=== PATIENT | male | born 1955 | race Caucasian/White ===

== ENCOUNTER 2019-08-29 17:46 | Emergency (ER) | payer BC, OTHER ==
[2019-08-29] MEDS ORDERED: NORMAL SALINE 1000 ML 1,000 ML IV ONE (18:22)
[2019-08-29 19:04] LABS: ABSOLUTE MONOCYTES (AUTO) 0.8 10^3/uL (0.1-1.4); ABSOLUTE NEUT (AUTO) 16.5 10^3/uL (1.7-8.2); BASOPHILS % (AUTO) 0.1 % (0-2); HEMATOCRIT 43.6 % (37.9-51.0); HEMOGLOBIN 15.2 g/dL (13.5-17.0); LYMPHOCYTES % (AUTO) 5.2 % (13-45); MEAN CORPUSCULAR HEMOGLOBIN 30.5 pg (27.0-33.4); MEAN CORPUSCULAR HGB CONC 34.7 g/dL (32.0-36.0); MEAN CORPUSCULAR VOLUME 88 fl (80-97); MONOCYTES % (AUTO) 4.3 % (3-13); PLATELET COUNT 239 10^3/uL (150-450); RED BLOOD COUNT 4.97 10^6/uL (4.35-5.55); SEGMENTED NEUTROPHILS % (AUTO) 90.4 % (42-78); TOTAL CELLS COUNTED % (AUTO) 100 %; WHITE BLOOD COUNT 18.3 10^3/uL (4.0-10.5)
[2019-08-29 19:22] LABS: ALBUMIN 4.4 g/dL (3.5-5.0); ALKALINE PHOSPHATASE 86 U/L (38-126); ANION GAP 11 (5-19); ASPARTATE AMINO TRANSFERASE 21 U/L (17-59); BILIRUBIN,DIRECT 0.2 mg/dL (0.0-0.4); BILIRUBIN,TOTAL 1.3 mg/dL (0.2-1.3); BLOOD UREA NITROGEN 46 mg/dL (7-20); CALCIUM 10.1 mg/dL (8.4-10.2); CARBON DIOXIDE 27 mmol/L (22-30); CHLORIDE 99 mmol/L (98-107); GLUCOSE 257 mg/dL (75-110); POTASSIUM 4.1 mmol/L (3.6-5.0); TOTAL PROTEIN 7.9 g/dL (6.3-8.2)
[2019-08-29 19:29] LABS: A TYPE INFLUENZA AG NEGATIVE (NEGATIVE); B INFLUENZA AG NEGATIVE (NEGATIVE)
[2019-08-29 19:32] LABS: VENOUS BLOOD BASE EXCESS -0.3 mmol/L; VENOUS BLOOD HCO3 23.1 mmol/L (20-32); VENOUS BLOOD PCO2 34.6 mmHg (35-63); VENOUS BLOOD PH 7.44 (7.30-7.42)
--- NOTE | 2019-08-29 19:57 | ER Document Report ---
ED ENT - General Chief Complaint: Sore Throat Stated Complaint: COUGH Time Seen by Provider: 08/29/19 18:02 Primary Care Provider: EAGLE ROGERS FNP-C [Primary Care Provider] - Follow up as needed Mode of Arrival: Ambulatory Information source: Patient Notes: 63-year-old male presented to ED for complaint of shortness of breath, low-grade fever, sore throat. He has swelling to the right side of his throat and neck. He states he has become more more difficult to swallow. He states he had a virtual visit with his doctor on Monday and they started on penicillin 500 mg a day for strep. He states he did not get tested for strep. He states he is also been using Tylenol. He is a diabetic on Actos with his sugars running in the 200s. He also has a history of high blood pressure and a right knee surgery as well as an appendectomy. He is alert oriented respirations regular nonlabored speaking in full sentences. He states he does have difficulty swallowing but he is able to suck on ice as well as long as he spits it out. He is a former smoker does not drink or do any drugs. TRAVEL OUTSIDE OF THE [place] IN LAST 30 DAYS: No - HPI Patient complains to provider of: Throat problem Onset: Last week Onset/Duration: Gradual, Worse Quality of pain: Sharp Severity: Severe Pain Level: 5 Context: Recent Illness Location of pain: Throat Associated symptoms: Runny nose, Sore throat Similar symptoms previously: Yes Recently seen / treated by doctor: Yes - Virtual visit - Related Data Allergies/Adverse Reactions: morphine Allergy (Verified 08/29/19 18:21) Past Medical History - General Information source: Patient - Social History Smoking Status: Former Smoker Frequency of alcohol use: None Drug Abuse: None Lives with: Family Family History: Reviewed & Not Pertinent Patient has suicidal ideation: No Patient has homicidal ideation: No - Past Medical History Cardiac Medical History: Reports: Hx Hypertension Pulmonary Medical History: Reports: None EENT Medical History: Reports: None Neurological Medical History: Reports: None Endocrine Medical History: Reports: Hx Diabetes Mellitus Type 2 Renal/ Medical History: Reports: None Malignancy Medical History: Reports None GI Medical History: Reports: None Musculoskeletal Medical History: Reports Hx Musculoskeletal Deformity, Reports Hx Musculoskeletal Trauma Skin Medical History: Reports None Psychiatric Medical History: Reports: None Traumatic Medical History: Reports: None Infectious Medical History: Reports: None Past Surgical History: Reports: Hx Appendectomy, Hx Orthopedic Surgery - Right knee - Immunizations Immunizations up to date: Yes Review of Systems - Review of Systems Constitutional: Fever, Recent illness EENT: Throat pain, Difficulty swallowing Cardiovascular: No symptoms reported Respiratory: Cough, Short of breath Gastrointestinal: No symptoms reported Genitourinary: No symptoms reported Male Genitourinary: No symptoms reported Musculoskeletal: No symptoms reported Skin: No symptoms reported Hematologic/Lymphatic: No symptoms reported Neurological/Psychological: No symptoms reported -: Yes All other systems reviewed and negative Physical Exam - Vital signs Vitals: Temp Pulse Resp BP Pulse Ox 99.8 F 110 H 18 118/76 95 08/29/19 18:08 08/29/19 18:08 08/29/19 18:08 08/29/19 18:08 08/29/19 18:08 Interpretation: Normal - General General appearance: Appears well, Alert - HEENT Head: Normocephalic, Atraumatic Eyes: Normal Pupils: PERRL Ears: Normal External canal: Normal Tympanic membrane: Normal Sinus: Normal Nasal: Purulent discharge, Swelling Mouth/Lips: Normal Mucous membranes: Normal Pharynx: Erythema, Exudate, Post nasal drainage, Tonsillar hypertrophy Neck: Anterior cervical chain, Lymphadenopathy - Respiratory Respiratory status: No respiratory distress Chest status: Nontender Breath sounds: Normal Chest palpation: Normal - Cardiovascular Rhythm: Regular Heart sounds: Normal auscultation Murmur: No - Abdominal Inspection: Normal Distension: No distension Bowel sounds: Normal Tenderness: Nontender Organomegaly: No organomegaly - Back Back: Normal, Nontender - Extremities General upper extremity: Normal inspection, Nontender, Normal color, Normal ROM, Normal temperature General lower extremity: Normal inspection, Nontender, Normal color, Normal ROM, Normal temperature, Normal weight bearing. No: Becca's sign - Neurological Neuro grossly intact: Yes Cognition: Normal Orientation: AAOx4 Dubberly Coma Scale Eye Opening: Spontaneous Dubberly Coma Scale Verbal: Oriented Dwain Coma Scale Motor: Obeys Commands Dubberly Coma Scale Total: 15 Speech: Normal Motor strength normal: LUE, RUE, LLE, RLE Sensory: Normal - Psychological Associated symptoms: Normal affect, Normal mood - Skin Skin Temperature: Warm Skin Moisture: Dry Skin Color: Normal Course - Vital Signs Vital signs: Temp Pulse Resp BP Pulse Ox 99.0 F 110 H 15 117/82 98 08/29/19 23:39 08/29/19 18:08 08/29/19 23:39 08/29/19 23:39 08/29/19 23:39 - Laboratory Result Diagrams: 08/29/19 18:36 08/29/19 18:36 Laboratory results interpreted by me: 08/29/19 08/29/19 08/29/19 18:36 18:36 19:18 WBC 18.3 H Lymph % (Auto) 5.2 L Absolute Neuts (auto) 16.5 H Seg Neutrophils % 90.4 H VBG pH 7.44 H VBG pCO2 34.6 L Sodium 136.8 L BUN 46 H Glucose 257 H POC Glucose 08/29/19 21:32 WBC Lymph % (Auto) Absolute Neuts (auto) Seg Neutrophils % VBG pH VBG pCO2 Sodium BUN Glucose POC Glucose 231 H Discharge - Discharge Clinical Impression: Peritonsillar abscess, Compromised airway Condition: Good Disposition: [facility] Referrals: EAGLE ROGERS FNP-C [Primary Care Provider] - Follow up as needed
--- NOTE | 2019-08-29 20:37 | RADIOLOGY REPORT (SQ) ---
EXAM DESCRIPTION: [facility]: CT NECK WITH IV CONTRAST CLINICAL HISTORY: 63 years Male; SWELLING TO RIGHT THROAT; no known trauma. Right-sided sore throat with fever times at least several days. TECHNIQUE: CT soft tissue neck with contrast All CT scans at this facility use dose modulation, iterative reconstruction, and/or weight based dosing when appropriate to reduce radiation dose to as low as reasonably achievable. COMPARISON: None. FINDINGS: There is a large collection of air and fluid that begins at the right tonsil and extends into the right lateral parapharyngeal soft tissues. The extends along the right lateral margin of the thyroid cartilage and into the midline, down to the thyroid gland. At the level of the right area epiglottic fold, there is significant mass effect on the airway. At this level, the collection of air and fluid measures 3.3 cm LR by 1.7 cm AP. Airway is reduced to less than 5 mm. Edema extends into the epiglottis. Right retropharyngeal edema combined with the fluid/air collection extends 2 cm anterior to the vertebral margin. Fluid collection 8 mm LR by at least 13 mm AP extends over the superior aspect of the thyroid cartilage along the medial aspect of the right half of the thyroid cartilage, down to the vocal cords. This contributes to severe significant narrowing of the laryngeal ventricle. There is enlargement of the left tonsil, but no left peritonsillar abscess. Carotid arteries are patent bilaterally. Mild calcific plaque at both carotid bifurcations. The fluid collection and edema extending along the medial aspect of the right carotid space. Multilevel right IJ nodes at levels 2 through 4 measuring up to 1.4 cm. No soheila necrosis. There is edema adjacent to the right submandibular gland. Other salivary glands are unremarkable. Chronic degenerative changes are seen throughout the cervical spine. No lytic bone changes. No acute fracture. Case discussed with MAIRA Klein via phone on 08/29/2019 at 7:34 PM CDT. IMPRESSION: 1. Large collection of air and fluid extending from right tonsil down to the thyroid gland, mostly in the right parapharyngeal soft tissues. This results in significant airway compromise in the oropharynx, hypopharynx, and at the laryngeal ventricle. This is likely a right peritonsillar abscess that has ruptured and extended inferiorly. 2. Reactive adenopathy.
--- NOTE | 2019-08-29 20:59 | ER Document Report ---
Doctor's Note Notes: 08/29/19 20:58 I took a critical finding result from the radiologist, see radiology report of CT soft tissue neck, I directly relate this information to attending physician, Dr. Devine who will go and evaluate the patient.
[2019-08-29] MEDS ORDERED: PIPERACILLIN/TAZOBACTAM 3.375 GM VIAL IV ONE (21:17)
[2019-08-29] MEDS ORDERED: ONDANSETRON HCL INJ/PF 4 MG/2 ML SDV IV ONE (21:18)
[2019-08-29] MEDS ORDERED: DEXAMETHASONE SOD PHOS INJ 10 MG/1 ML VIAL IV ONE (21:18)
[2019-08-29] MEDS ORDERED: HYDROMORPHONE HCL INJ/PF 2 MG/ML AMPULE IV ONE (21:42)
--- NOTE | 2019-08-29 22:38 | ER Document Report ---
Entered by NIKOLAI LUCERO SCRIBE 08/29/19 5646 Acting as scribe for:ROMI INFANTE IV, MD ED General - General Chief Complaint: Sore Throat Stated Complaint: COUGH Time Seen by Provider: 08/29/19 18:02 Primary Care Provider: EAGLE ROGERS FNP-C [Primary Care Provider] - Follow up as needed Mode of Arrival: Ambulatory Information source: Patient Notes: This 63-year-old male presents to the emergency department complaining of throat pain that began three days ago. Patient explains that he had a virtual doctor's visit three days ago and was treated for strep throat with no strep test. Patient reports difficulty swallowing secondary to pain but states that he is able to swallow. Patient reports swelling on the right side of her neck and throat. Patient states that he has been taking Tylenol with no relief. Patient also reports shortness of breath and fever. TRAVEL OUTSIDE OF THE [place] IN LAST 30 DAYS: No - Related Data Allergies/Adverse Reactions: morphine Allergy (Verified 08/29/19 18:21) Past Medical History - General Information source: Patient - Social History Smoking Status: Former Smoker Cigarette use (# per day): No Chew tobacco use (# tins/day): No Frequency of alcohol use: None Drug Abuse: None Lives with: Family Family History: Reviewed & Not Pertinent Patient has suicidal ideation: No Patient has homicidal ideation: No - Past Medical History Cardiac Medical History: Reports: Hx Hypertension Pulmonary Medical History: Reports: None EENT Medical History: Reports: None Neurological Medical History: Reports: None Endocrine Medical History: Reports: Hx Diabetes Mellitus Type 2 Renal/ Medical History: Reports: None Malignancy Medical History: Reports None GI Medical History: Reports: None Musculoskeletal Medical History: Reports Hx Musculoskeletal Deformity, Reports Hx Musculoskeletal Trauma Skin Medical History: Reports None Psychiatric Medical History: Reports: None Traumatic Medical History: Reports: None Infectious Medical History: Reports: None Past Surgical History: Reports: Hx Appendectomy, Hx Orthopedic Surgery - Right knee - Immunizations Immunizations up to date: Yes Review of Systems - Review of Systems Constitutional: See HPI, Fever EENT: See HPI, Throat pain, Difficulty swallowing Cardiovascular: No symptoms reported Respiratory: See HPI, Short of breath Gastrointestinal: No symptoms reported Genitourinary: No symptoms reported Male Genitourinary: No symptoms reported Musculoskeletal: See HPI, Other - Neck swelling Skin: No symptoms reported Hematologic/Lymphatic: No symptoms reported Neurological/Psychological: No symptoms reported -: Yes All other systems reviewed and negative Physical Exam - Vital signs Vitals: Temp Pulse Resp BP Pulse Ox 99.8 F 110 H 18 118/76 95 08/29/19 18:08 08/29/19 18:08 08/29/19 18:08 08/29/19 18:08 08/29/19 18:08 - Notes Notes: Physical Exam: General: Alert, appears well. HEENT: Normocephalic. Atraumatic. PERRL. Extraocular movements intact. Diffuse erythema in the posterior oropharynx. The right tonsil appears to be larger than the left. no uvula deviation or submandibular swelling. Neck: Supple. Non-tender. Respiratory: No respiratory distress. Clear and equal breath sounds bilaterally. No stridor. Cardiovascular: Regular rate and rhythm. Abdominal: Normal Inspection. Non-tender. No distension. Normal Bowel Sounds. Back: No gross abnormalities. Extremities: Moves all four extremities. Upper extremities: Normal inspection. Normal ROM. Lower extremities: Normal inspection. No edema. Normal ROM. Neurological: Normal cognition. AAOx4. Normal speech. Psychological: Normal affect. Normal Mood. Skin: Warm. Dry. Normal color. Course - Re-evaluation Re-evalutation: 08/29/19 22:38 Results of ED MSE discussed with patient and patient's by phone. All questions were answered. Need for transfer to facility with ENT discussed with patient and patient's via phone. Patient agrees to transfer. 08/29/19 23:59 Transport has arrived to take patient to [facility] patient is alert and oriented x3 and is currently protecting his airway. There is no evidence of stridor or respiratory distress. Patient appears stable for transport. - Vital Signs Vital signs: Temp Pulse Resp BP Pulse Ox 99.0 F 110 H 15 117/82 98 08/29/19 23:39 08/29/19 18:08 08/29/19 23:39 08/29/19 23:39 08/29/19 23:39 - Laboratory Result Diagrams: 08/29/19 18:36 08/29/19 18:36 Laboratory results interpreted by me: 08/29/19 08/29/19 08/29/19 18:36 18:36 19:18 WBC 18.3 H Lymph % (Auto) 5.2 L Absolute Neuts (auto) 16.5 H Seg Neutrophils % 90.4 H VBG pH 7.44 H VBG pCO2 34.6 L Sodium 136.8 L BUN 46 H Glucose 257 H POC Glucose 08/29/19 21:32 WBC Lymph % (Auto) Absolute Neuts (auto) Seg Neutrophils % VBG pH VBG pCO2 Sodium BUN Glucose POC Glucose 231 H - Diagnostic Test Radiology reviewed: Reports reviewed - Consults dr. aliyah dowling Time consulted: 21:45 - dr. ly accepted pt for transfer to his facility; he asked transfer center coordinator to make transfer ed to ed and to notify him upon patient's arrival Reason for consultation: 08/29/19 22:39 right peritonsillar abscess with swelling and airway compromise on ct Critical Care Note - Critical Care Note Total time excluding time spent on procedures (mins): 90 Discharge - Discharge Clinical Impression: Peritonsillar abscess, Compromised airway Condition: Good Disposition: [facility] Referrals: EAGLE ROGERS, PAEDIATRIC THORACIC PHYSICIAN-C [Primary Care Provider] - Follow up as needed I personally performed the services described in the documentation, reviewed and edited the documentation which was dictated to the scribe in my presence, and it accurately records my words and actions.
[2019-08-30 00:17] VITALS: BP 117/82
== END 2019-08-29 23:50 | disposition short-term general hospital (02) ==
LOC: ER 17:46
DX: J36 Peritonsillar abscess (principal); R05 Cough; R07.0 Pain in throat; R13.10 Dysphagia, unspecified; R22.1 Localized swelling, mass and lump, neck; R06.02 Shortness of breath; R50.9 Fever, unspecified; Z88.8 Allergy status to other drugs, medicaments and biological substances; Z87.891 Personal history of nicotine dependence; I10 Essential (primary) hypertension; E11.9 Type 2 diabetes mellitus without complications
CPT/HCPCS: 99291; 99292; 96361; 96375; 96365; 36415; 87040; 87070; 87880; 82962; 85025; 86308; 80053; 82803; 87804; 70491; J1170; J2405; J7030; J1100; J2543

== ENCOUNTER → 2020-04-07 | Outpatient (CLI) | payer BC ==
[2020-04-07 08:43] LABS: ALBUMIN 4.8 g/dL (3.5-5.0); ALKALINE PHOSPHATASE 70 U/L (38-126); ANION GAP 9 (5-19); ASPARTATE AMINO TRANSFERASE 26 U/L (17-59); BILIRUBIN,DIRECT 0.3 mg/dL (0.0-0.4); BLOOD UREA NITROGEN 17 mg/dL (7-20); CARBON DIOXIDE 27 mmol/L (22-30); CHLORIDE 100 mmol/L (98-107); CHOLESTEROL 203.71 mg/dL (0-200); GLUCOSE 200 mg/dL (75-110); POTASSIUM 5.2 mmol/L (3.6-5.0); TOTAL PROTEIN 7.8 g/dL (6.3-8.2); TRIGLYCERIDES 327 mg/dL (<150)
[2020-04-07 08:46] LABS: CALCIUM 9.9 mg/dL (8.4-10.2)
[2020-04-07 08:54] LABS: DIRECT LDL 89 mg/dL (<100)
[2020-04-07 09:02] LABS: VLDL CHOLESTEROL 65.4 mg/dL (10-31)
== END ==
LOC: OD 07:20
PROVIDERS: ATTEND Nurse Practitioner Family
DX: E11.9 Type 2 diabetes mellitus without complications (principal); I10 Essential (primary) hypertension; E78.2 Mixed hyperlipidemia
CPT/HCPCS: 36415; 80053; 80061